=== PATIENT | male | born 1960 | race Hispanic/Latino ===

== ENCOUNTER 2018-11-20 18:30 | Emergency (ER) | payer SELFPAY ==
[~2018-11-20] VITALS: Ht 170.2 cm; Wt 96.3 kg
[2018-11-20] MEDS ORDERED: CLONIDINE HCL 0.2 MG TAB PO ONE (19:00)
[2018-11-20] MEDS ORDERED: ONDANSETRON HCL INJ 2MG/ML 2ML 2 MG/ML VIAL IV ONE (19:00)
[2018-11-20] MEDS ORDERED: FAMOTIDINE 20 MG/2 ML VIAL IV ONE (19:00)
[2018-11-20] MEDS ORDERED: NITROGLYCERIN 2% OINT 1 GM PKT TOP ONE (19:15)
[2018-11-20] MEDS ORDERED: ASPIRIN 81 MG CHEW TAB PO ONE (19:15)
[2018-11-20] MEDS ORDERED: ACETAMINOPHEN 325 MG TAB PO ONE (19:15)
--- NOTE | 2018-11-20 19:35 | Diagnostic Imaging Report ---
EXAM: CXR 2 VIEW - [facility]OPD DATE: 11/20/2018 12:00 AM INDICATION: ^[id number] ^[id number] COMPARISON: None FINDINGS: Lines and tubes: None Heart size normal. No focal pulmonary opacity, pleural effusion or pneumothorax. Upper abdomen unremarkable. No acute bony abnormality. IMPRESSION: No evidence for acute disease. Signed by: Dr. Marin Sharp M.D. on 11/20/2018 7:31 PM
--- NOTE | 2018-11-20 19:55 | NUR ---
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
== END 2018-11-20 20:00 | disposition left against medical advice (07) ==
LOC: FSED 18:30
DX: R07.89 Other chest pain (principal); R94.31 Abnormal electrocardiogram [ECG] [EKG]
CPT/HCPCS: 71046; 80053; 80076; 82553; 84484; 85025; 93005